=== PATIENT | female | born 1980 | race African-American/Black ===

== ENCOUNTER 2017-01-21 15:21 | Emergency (ER) | payer MEDICAID ==
[2017-01-21 15:52] LABS: BASOPHILS 0.4 % (0-2); EOSINOPHILS 0.6 % (0-7); HEMATOCRIT 40.6 % (36.0-48.0); HEMOGLOBIN 13.6 g/dL (12-16); LYMPHOCYTES 25.9 % (15-50); MCH 29.1 pg (26.0-34.0); MCHC 33.5 g/dL (31.0-37.0); MCV 86.9 fL (80.0-100.0); MEAN PLATELET VOLUME 10.6 fL (7.4-10.4); MONOCYTES 3.9 % (2-11); NEUTROPHILS 69.2 % (40-80); PLATELET COUNT 175 10x3/uL (130-400); RBC 4.67 10x6/uL (4.00-5.40); RDW 13.5 % (11.5-14.5); WBC 5.4 10x3/uL (4.8-10.8)
[2017-01-21 16:04] LABS: ALBUMIN 3.8 g/dL (3.4-5.0); ALKALINE PHOSPHATASE 63 U/L (46-116); BILIRUBIN - TOTAL 0.24 mg/dL (0.2-1.3); CALC OSMOLALITY 285 mosm/kg (275-300); CALCIUM 9.4 mg/dL (8.5-10.1); CHLORIDE - SERUM 106 mmol/L (98-107); CREATININE - SERUM 0.7 mg/dL (0.6-1.3); GLUCOSE 96 mg/dL (74-106); POTASSIUM - SERUM 3.5 mmol/L (3.5-5.1); PROTEIN - SERUM 7.3 g/dL (6.4-8.2); SODIUM 143 mmol/L (136-145); UREA NITROGEN 15 mg/dL (7-18); eGFR NON AFRICAN AMERICAN > 90 mL/min (90-120)
[2017-01-21 16:05] LABS: ALT (SGPT) 3 U/L (10-68)
[2017-01-21 16:14] LABS: CHOLESTEROL, TOTAL 146 mg/dL (0-200); CREATINE KINASE 56 UL (21-215); HDL CHOLESTEROL 73 mg/dL (32-96); LDL CHOLESTEROL 67 mg/dL (0-100); LDL-HDL RATIO 0.9 ratio (1.5-3.5); TRIGLYCERIDE 34 mg/dL (30-200); TROPONIN-I < 0.017 ng/mL (0.000-0.060)
== END 2017-01-21 18:00 | disposition home or self-care (01) ==
LOC: D.ER 15:21
PROVIDERS: Emergency Medicine
DX: R07.9 Chest pain, unspecified (principal); I10 Essential (primary) hypertension; Z85.07 Personal history of malignant neoplasm of pancreas; F17.200 Nicotine dependence, unspecified, uncomplicated